=== PATIENT | male | born 1965 | race Caucasian/White ===

== ENCOUNTER 2017-06-10 11:56 | Inpatient (IN) | payer OTHER ==
[~2017-06-10] VITALS: Ht 170.2 cm; Wt 106.1 kg
[2017-06-10 12:10] VITALS: BP_SYST 99
[2017-06-10 13:19] LABS: HEMOGLOBIN 9.3 g/dL (14.0-18.0); MEAN CORPUSCULAR HEMOGLOBIN 27 pg (27-31); MEAN CORPUSCULAR HGB CONC 33 % (32-36); MEAN CORPUSCULAR VOLUME 82 fL (79.0-98.0); PLATELET COUNT (AUTO) 217 K/uL (130-430); RED CELL DISTRIBUTION WIDTH 15.1 % (9.0-15.0)
[2017-06-10 13:22] LABS: INR 1.2 (0.80-1.20); PROTHROMBIN TIME 11.9 SECS (9.5-12.5)
[2017-06-10 13:35] LABS: ANION GAP 9 (5-15); CALCIUM 8.3 mg/dL (8.4-11.0); CHLORIDE 97 mmol/L (98-107); CREATININE 2.35 mg/dL (0.55-1.30); GFR AFRICAN AMERICAN 38 mL/min (>90); GLUCOSE 156 mg/dL (70-99); POTASSIUM 4.3 mmol/L (3.5-5.1); SODIUM SERUM 129 mmol/L (136-145); UREA NITROGEN, BLOOD 42 mg/dL (8-21)
[2017-06-10 13:36] LABS: ALANINE AMINOTRANSFERASE 28 U/L (12-78); ALBUMIN 2.1 g/dL (3.4-4.8); ASPARTATE AMINOTRANSFERASE 32 U/L (10-37); TOTAL BILIRUBIN 0.6 mg/dL (0.0-1.0)
[2017-06-10 13:37] LABS: LIPASE 55 U/L (73-393)
[2017-06-10 13:48] LABS: BAND % (MANUAL) 10 % (0-6)
[2017-06-10 13:49] LABS: BASOPHILS % (MANUAL) 0 % (0-2); EOSINOPHILS % (MANUAL) 0 % (0-7); LYMPHOCYTES % (MANUAL) 5 % (20-46); MONOCYTES % (MANUAL) 7 % (0-11)
[2017-06-10] MEDS ORDERED: cefTRIAXone 1 GM in D5W 50 ML IV ONE (14:00)
[2017-06-10] MEDS ORDERED: NACL 0.9% 1,000 ML IV ONE ×3 (14:00→15:30)
[2017-06-10] MEDS ORDERED: HYDR-4039 PO (14:17)
[2017-06-10] MEDS ORDERED: PRO40 PO (14:17)
[2017-06-10] MEDS ORDERED: ATOR40TA68 PO (14:17)
[2017-06-10] MEDS ORDERED: HYDR25TA4 PO (14:17)
[2017-06-10] MEDS ORDERED: SENN-67 PO (14:17)
[2017-06-10] MEDS ORDERED: TAMS-11 PO (14:17)
[2017-06-10] MEDS ORDERED: BACL10TA PO (14:17)
[2017-06-10] MEDS ORDERED: CARV25TA55 PO (14:17)
[2017-06-10] MEDS ORDERED: CITA40TA22 PO (14:17)
[2017-06-10] MEDS ORDERED: NOR10 PO (14:17)
[2017-06-10] MEDS ORDERED: HYDR-1115 PO (14:17)
[2017-06-10] MEDS ORDERED: AMAN100C16 PO (14:17)
[2017-06-10] MEDS ORDERED: cefTRIAXone 1 GM VIAL ONE (14:22)
[2017-06-10 14:58] LABS: BILIRUBIN,URINE NEGATIVE (NEGATIVE); BLOOD, URINE 2+ (NEGATIVE); CLARITY/URINE CLOUDY (CLEAR); COLOR,URINE YELLOW (YELLOW); GLUCOSE,URINE TRACE (NEGATIVE); KETONES,URINE NEGATIVE (NEGATIVE); LEUKOCYTE ESTERASE ,URINE 2+ (NEGATIVE); NITRITE, URINE NEGATIVE (NEGATIVE); PROTEIN URINE 3+ (NEGATIVE); UROBILINOGEN,URINE 0.2 (0.2-1.0)
[2017-06-10 15:00] LABS: BACTERIA,URINE MANY /HPF (None Seen); WBC,URINE >100 /HPF (0-3)
[2017-06-10] MEDS ORDERED: INSU100V32 SUBCUT (15:23)
[2017-06-10] MEDS ORDERED: INSU100V9 SUBCUT ×2 (15:23)
[2017-06-10] MEDS ORDERED: OXYCODONE/ACETAMINOPHEN 5-325 TABLET PO ONE (15:30)
[2017-06-10] MEDS ORDERED: ONDANSETRON HCL 4 MG/2 ML VIAL IVP ONE (16:45)
[2017-06-10 17:37] VITALS: BP_SYST 102
[2017-06-10] MEDS ORDERED: DEXTROSE 50% JECT 50 ML DISP.SYRIN IVP PRN (17:45)
[2017-06-10] MEDS ORDERED: ACETAMINOPHEN 325 MG TABLET PO PRN (17:45)
[2017-06-10] MEDS ORDERED: NACL 0.9% 1,000 ML IV SCH (17:45)
[2017-06-10] MEDS ORDERED: LEVOFLOXACIN 500 MG/D5W 100 ML IV ONE (17:45)
[2017-06-10] MEDS ORDERED: LEVOFLOXACIN 250 MG/D5W 50 ML IV ONE (19:26)
[2017-06-10 19:40] VITALS: BP_SYST 102
[2017-06-10 20:00] VITALS: BP_SYST 102
[2017-06-10] MEDS ORDERED: FUROSEMIDE 40 MG/4 ML VIAL IVP ONE (20:15)
[2017-06-10] MEDS ORDERED: IPRATROPIUM/ALBUTEROL SULFATE 3 ML AMPUL.NEB INH PRN (20:30)
[2017-06-10] MEDS: CARVEDILOL 25 MG TABLET (COREG) PO SCH (21:00)
[2017-06-10] MEDS: TAMSULOSIN HCL 0.4 MG CAP PO SCH (21:32)
[2017-06-10] MEDS ORDERED: TAMSULOSIN HCL 0.4 MG CAP ONE (21:32)
[2017-06-10] MEDS: BACLOFEN 10 MG TABLET PO SCH (21:32)
[2017-06-10] MEDS: ENOXAPARIN SODIUM 30 MG/0.3 ML SYRINGE SUBCUT SCH (21:32)
[2017-06-10] MEDS: AMANTADINE HCL 100 MG CAP PO SCH (21:33)
[2017-06-10] MEDS: INSULIN REGULAR, HUMAN 100 UNITS/ML, 10 ML VIAL (novoLIN R) SUBCUT PRN (21:44)
[2017-06-10] MEDS: IPRATROPIUM/ALBUTEROL SULFATE 3 ML AMPUL.NEB INH SCH (23:00)
[2017-06-10 23:46] VITALS: BP_SYST 120
[2017-06-10] MEDS ORDERED: MILK OF MAGNESIA 30 ML UDC PO ONE (23:58)
[2017-06-11] VITALS (10 sets, daily range): BP systolic 79–127
[2017-06-11] MEDS: IPRATROPIUM/ALBUTEROL SULFATE 3 ML AMPUL.NEB INH SCH ×5 (03:00→20:01)
[2017-06-11] MEDS: INSULIN REGULAR, HUMAN 100 UNITS/ML, 10 ML VIAL (novoLIN R) SUBCUT PRN ×4 (06:10→20:24)
[2017-06-11 06:37] LABS: BASOPHILS # (AUTO) 0.1 K/uL (0.0-0.2); BASOPHILS % (AUTO) 0.4 % (0.0-2.0); HEMATOCRIT 28.6 % (36-54); HEMOGLOBIN 9.4 g/dL (14.0-18.0); LYMPHOCYTES # (AUTO) 1.1 K/uL (1.0-5.5); LYMPHOCYTES % (AUTO) 4.7 % (20.5-51.5); MEAN CORPUSCULAR HEMOGLOBIN 27 pg (27-31); MEAN CORPUSCULAR HGB CONC 33 % (32-36); MEAN CORPUSCULAR VOLUME 82 fL (79.0-98.0); MONOCYTES # (AUTO) 1.4 K/uL (0.0-1.0); MONOCYTES % (AUTO) 6.2 % (1.7-9.3); NEUTROPHILS # (AUTO) 20.4 K/uL (1.8-7.7); PLATELET COUNT (AUTO) 207 K/uL (130-430); RED BLOOD CELL COUNT(AUTO) 3.49 MIL/uL (4.2-6.2); RED CELL DISTRIBUTION WIDTH 14.8 % (9.0-15.0)
[2017-06-11 06:53] LABS: NEUTROPHILS % (AUTO) 88.7 % (40.0-70.0)
[2017-06-11 07:00] LABS: ALBUMIN 1.9 g/dL (3.4-4.8); CALCIUM 8.2 mg/dL (8.4-11.0); CREATININE 2.37 mg/dL (0.55-1.30); PHOSPHORUS 4.5 mg/dL (2.7-4.5); THYROID STIMULATING HORMONE 1.73 uIu/mL (0.34-4.82); TOTAL BILIRUBIN 0.4 mg/dL (0.0-1.0)
[2017-06-11] MEDS: TAMSULOSIN HCL 0.4 MG CAP PO SCH (08:37)
[2017-06-11] MEDS: BACLOFEN 10 MG TABLET PO SCH ×3 (08:37→20:20)
[2017-06-11] MEDS: AMANTADINE HCL 100 MG CAP PO SCH ×2 (08:37→20:20)
[2017-06-11] MEDS: CARVEDILOL 25 MG TABLET (COREG) PO SCH ×2 (08:41→20:21)
[2017-06-11] MEDS ORDERED: ATORVASTATIN 20 MG TABLET PO SCH (09:00)
[2017-06-11] MEDS ORDERED: ASPIRIN 81 MG TABLET(ECOTRIN) PO SCH (09:00)
[2017-06-11] MEDS ORDERED: SENNOSIDES/DOCUSATE SODIUM 1 TAB TABLET(SENOKOT-S) PO SCH (09:00)
[2017-06-11] MEDS ORDERED: hydrALAZINE HCL 25 MG TABLET PO SCH (09:00)
[2017-06-11] MEDS ORDERED: MILK OF MAGNESIA 30 ML UDC PO PRN ×2 (09:00)
[2017-06-11] MEDS ORDERED: CITALOPRAM HYDROBROMIDE 20 MG TABLET PO SCH (09:00)
[2017-06-11] MEDS ORDERED: PANTOPRAZOLE SODIUM 40 MG TAB PO SCH (09:00)
[2017-06-11] MEDS ORDERED: amLODIPine BESYLATE 10 MG TABLET PO SCH (09:00)
[2017-06-11] MEDS: ACETAMINOPHEN 325 MG TABLET PO PRN ×2 (10:13→15:48)
[2017-06-11] MEDS ORDERED: FUROSEMIDE 40 MG/4 ML VIAL IVP ONE (14:15)
[2017-06-11] MEDS ORDERED: BISACODYL 10 MG/SUPPOSITORY RC PRN (14:30)
[2017-06-11] MEDS ORDERED: BISACODYL 10 MG/SUPPOSITORY RC ONE (14:30)
[2017-06-11] MEDS ORDERED: LACTULOSE 20 GM/30 ML UDC PO ONE (14:30)
[2017-06-11] MEDS: PIPERACILLIN/TAZO 2.25G/DEX-IS 50 ML IV SCH ×2 (15:47→18:06)
[2017-06-11 17:52] LABS: THYROID STIMULATING HORMONE 1.95 uIu/mL (0.36-3.74)
[2017-06-11] MEDS ORDERED: PANTOPRAZOLE SODIUM 40 MG/VIAL (PROTONIX) IVP SCH (18:30)
[2017-06-11] MEDS ORDERED: AZITHROMYCIN 500 MG in NS 250 ML IV ONE (18:30)
[2017-06-11] MEDS: ENOXAPARIN SODIUM 30 MG/0.3 ML SYRINGE SUBCUT SCH (20:21)
[2017-06-11] MEDS ORDERED: AZITHROMYCIN 500 MG/VIAL (ZITHROMAX) IV ONE (20:22)
[2017-06-11] MEDS ORDERED: PANTOPRAZOLE SODIUM 40 MG/VIAL (PROTONIX) ONE (20:22)
[2017-06-11] MEDS ORDERED: FUROSEMIDE 40 MG/4 ML VIAL IVP SCH (21:00)
[2017-06-11] MEDS ORDERED: cefTRIAXone 1 GM in D5W 50 ML IV SCH (21:00)
[2017-06-11] MEDS ORDERED: LACTULOSE 20 GM/30 ML UDC PO SCH (21:00)
[2017-06-11] MEDS ORDERED: LEVOFLOXACIN 250 MG/D5W 50 ML IV SCH (21:00)
[2017-06-11] MEDS ORDERED: ONDANSETRON HCL 4 MG/2 ML VIAL IVP ONE (21:52)
[2017-06-11] MEDS ORDERED: ONDANSETRON HCL 4 MG/2 ML VIAL ONE (21:53)
[2017-06-11] MEDS ORDERED: PIPERACILLIN/TAZO 3.375/DEX-IS 50 ML IV SCH (22:00)
[2017-06-11] MEDS ORDERED: EPINEPHrine JECT 1 MG/10 ML SYR ONE (22:18)
[2017-06-11] MEDS ORDERED: ATROPINE SULFATE 1 MG/10 ML SYRINGE IVP ONE (22:19)
[2017-06-11] MEDS ORDERED: SODIUM BICARBONATE 8.4% JECT 50 MEQ/50 ML SYRINGE IVP ONE (22:19)
[2017-06-11] MEDS ORDERED: EPINEPHrine JECT 1 MG/10 ML SYR IVP ONE (22:19)
[2017-06-11] MEDS ORDERED: NS 1000 ML BAG IV ONE (22:19)
[2017-06-11] MEDS ORDERED: DOPamine PREMIX 400 MG/250 ML BTL IV ONE (22:19)
[2017-06-12 09:17] LABS: URINE SODIUM, RANDOM 36 mmol/L (40-220)
[2017-06-12] MEDS ORDERED: AZITHROMYCIN 500 MG in NS 250 ML IV SCH (21:00)
== END 2017-06-11 22:20 | disposition expired | DRG 871 ==
LOC: SED 11:56 → STU 16:48 → SIC 06-11 15:10
PROVIDERS: ADMIT Internal Medicine; ATTEND Internal Medicine
DX: A41.9 Sepsis, unspecified organism (principal); R65.21 Severe sepsis with septic shock; N17.9 Acute kidney failure, unspecified; E87.2 Acidosis; E87.1 Hypo-osmolality and hyponatremia; I69.354 Hemiplegia and hemiparesis following cerebral infarction affecting left non-dominant side; N39.0 Urinary tract infection, site not specified; E11.22 Type 2 diabetes mellitus with diabetic chronic kidney disease; D64.9 Anemia, unspecified; E66.9 Obesity, unspecified; E78.5 Hyperlipidemia, unspecified; I12.9 Hypertensive chronic kidney disease with stage 1 through stage 4 chronic kidney disease, or unspecified chronic kidney disease; N18.9 Chronic kidney disease, unspecified; N31.9 Neuromuscular dysfunction of bladder, unspecified; R09.02 Hypoxemia
CPT/HCPCS: 36415; 36600; 71045; 71250-TC; 74150-TC; 76770; 76870-TC; 80053; 80061; 81000-TC; 82570-TC; 82803-TC; 82962; 83036; 83605; 83690-TC; 83880; 83930-TC; 83935-TC; 84100-TC; 84302-TC; 84443-TC; 84484; 85007; 85025; 85027; 85610-TC; 86710; 87040-TC; 87081; 87086; 87186-TC; 92950; 93005; 93970; 94640; 96361; 96365; 96375; 99285; C9113; J0171; J0456; J0461; J0696; J1265; J1650; J1815; J1940; J1956; J2405; J2543; J7030; J7050; J7060